=== PATIENT | male | born 1955 | race Caucasian/White ===

== ENCOUNTER 2016-10-30 12:01 | Emergency (ER) | payer OTHER ==
--- NOTE | 2016-10-30 12:16 | EDPHY ---
H & P Stated Complaint: Tingling to L arm shaky for months Time Seen by Provider: 10/30/16 12:10 HPI/ROS: CHIEF COMPLAINT: Chest pressure HISTORY OF PRESENT ILLNESS: The patient presents to the ED with an episode of chest pressure that began earlier today. The patient reportedly has had a history of paresthesias in his left upper extremity for the past several months. This is not changed acutely over the past day. The patient also has a tremor and does report moderate daily alcohol consumption. The patient denies pleuritic chest pain. The patient does report a history of chest pain in the past which was evaluated without obvious pathology noted. The patient currently is asymptomatic. He did have some mild low back pain which has been present over the past several weeks since sustaining a mechanical fall. He complains of some left posterior rib pain worsened with palpation. He did not seek care or evaluation at that time. REVIEW OF SYSTEMS: A comprehensive 10 point review of systems is otherwise negative aside from elements mentioned in the history of present illness. Source: Patient Exam Limitations: No limitations - Personal History Current Tetanus/Diphtheria Vaccine: Unsure Current Tetanus Diphtheria and Acellular Pertussis (TDAP): Unsure - Medical/Surgical History Hx Asthma: No Hx Chronic Respiratory Disease: No Hx Diabetes: No Hx Cardiac Disease: No Hx Renal Disease: No Hx Cirrhosis: No Hx Alcoholism: No Hx HIV/AIDS: No Hx Splenectomy or Spleen Trauma: No - Social History Smoking Status: Current every day smoker - Physical Exam Exam: General Appearance: Alert, no distress Eyes: Pupils equal and round no pallor or injection ENT, Mouth: Mucous membranes moist Respiratory: Tenderness to palpation in the left posterior ribs, minimal in nature Cardiovascular: Regular rate and rhythm Gastrointestinal: Abdomen is soft and nontender, no masses, bowel sounds normal Neurological: A&O, normal motor function, normal sensory exam, normal cranial nerves Skin: Warm and dry, no rashes Musculoskeletal: Neck is supple nontender Extremities: symmetrical, full range of motion Psychiatric: Patient is oriented X 3, there is no agitation, fine tremor Constitutional: Initial Vital Signs Temperature (C) 36.7 C 10/30/16 12:03 Heart Rate 75 10/30/16 12:03 Respiratory Rate 14 10/30/16 12:03 Blood Pressure 172/88 H 10/30/16 12:03 O2 Sat (%) 99 10/30/16 12:03 O2 Delivery Mode Room Air Allergies/Adverse Reactions: No Known Allergies Allergy (Unverified 10/30/16 12:06) Medical Decision Making - Diagnostics EKG Interpretation: EKG: Complete interpretation has been separately recorded in the [email or web address] archive. Summary impression: Sinus rhythm, rate 67 Imaging Results: Imaging Impressions Chest X-Ray 10/30/16 12:34 Impression: 1. Chest negative for acute cardiopulmonary abnormality. 2. Spinal degenerative changes are noted.. ED Course/Re-evaluation: The patient presents to the emergency department after an episode of back pain and mild chest pain. The patient has no risk factors for cardiac disease. His EKG and troponin is normal. The patient did have a mild tremor noted on exam which is likely consistent with mild alcohol withdrawal. The patient did receive 1 mg of IV Ativan. The patient was also evaluated for evidence of a rib fracture and chest trauma with a chest x-ray which demonstrated no evidence of a rib fracture, pneumothorax or hemothorax. The patient is re-evaluated at 1:45 p.m. and is feeling better. At this point time I do feel the patient can follow up with his primary care provider Dr. Randolph. Discussion: The patient presents the emergency department with multiple medical complaints. He has not had regular follow-up with his primary care provider. He does have complaints of back pain but no evidence of an obvious traumatic injury noted on exam. The patient did have some atypical chest and back pain earlier today but has a negative EKG and normal cardiac enzymes. I have instructed the patient that he should return to the ED immediately for any worsening chest pain, exertional chest pain, shortness of breath or other concerns. I have informed him that we cannot fully evaluate the presence of coronary artery disease and that further workup may be indicated. Differential Diagnosis: Differential diagnosis considered includes acute coronary syndrome, gastroesophageal reflux disease, myofascial strain, rib fracture, pneumothorax, hemothorax - Data Points Laboratory Results: Laboratory Results 10/30/16 12:30 10/30/16 12:30 10/30/16 10/30/16 12:30 12:30 WBC 7.54 10^3/uL 10^3/uL (3.80-9.50) RBC 4.50 10^6/uL 10^6/uL (4.40-6.38) Hgb 14.9 g/dL g/dL (13.7-17.5) Hct 44.2 % % (40.0-51.0) MCV 98.2 fL fL (81.5-99.8) MCH 33.1 pg pg (27.9-34.1) MCHC 33.7 g/dL g/dL (32.4-36.7) RDW 12.5 % % (11.5-15.2) Plt Count 166 10^3/uL 10^3/uL (150-400) MPV 11.3 fL fL (8.7-11.7) Neut % (Auto) 48.9 % % (39.3-74.2) Lymph % (Auto) 38.3 % % (15.0-45.0) [place] % (Auto) 9.2 % % (4.5-13.0) Eos % (Auto) 1.7 % % (0.6-7.6) Baso % (Auto) 1.1 % % (0.3-1.7) Nucleat RBC Rel Count 0.0 % % (0.0-0.2) Absolute Neuts (auto) 3.69 10^3/uL 10^3/uL (1.70-6.50) Absolute Lymphs (auto) 2.89 10^3/uL 10^3/uL (1.00-3.00) Absolute Monos (auto) 0.69 10^3/uL 10^3/uL (0.30-0.80) Absolute Eos (auto) 0.13 10^3/uL 10^3/uL (0.03-0.40) Absolute Basos (auto) 0.08 10^3/uL 10^3/uL (0.02-0.10) Absolute Nucleated RBC 0.00 10^3/uL 10^3/uL (0-0.01) Immature Gran % 0.8 % % (0.0-1.1) Immature Gran # 0.06 10^3/uL 10^3/uL (0.00-0.10) Sodium 139 mEq/L mEq/L (134-144) Potassium 4.9 mEq/L mEq/L (3.5-5.2) Chloride 103 mEq/L mEq/L (97-110) Carbon Dioxide 25 mEq/l mEq/l (22-31) Anion Gap 11 mEq/L mEq/L (8-16) BUN 15 mg/dL mg/dL (7-23) Creatinine 0.7 mg/dL mg/dL (0.7-1.3) Estimated GFR > 60 Glucose 125 mg/dL H mg/dL (70-100) Calcium 9.6 mg/dL mg/dL (8.5-10.4) Troponin I < 0.012 ng/mL ng/mL (0-0.034) Medications Given: Discontinued Medications Sodium Chloride (Ns) 1,000 mls @ 0 mls/hr IV ONCE ONE PRN Reason: Wide Open Stop: 10/30/16 12:35 Last Admin: 10/30/16 12:54 Dose: 1,000 mls Lorazepam (Ativan Injection) 1 mg IVP EDNOW ONE Stop: 10/30/16 12:38 Last Admin: 10/30/16 13:10 Dose: 1 mg Departure - Departure Disposition: Home, Routine, Self-Care Clinical Impression: Paresthesia, Back pain Condition: Good Instructions: Acute Low Back Pain (ED) Additional Instructions: 1. Based upon the testing done in the Emergency Department today we see no evidence of a heart attack. 2. We are unable to fully exclude coronary artery disease based upon the testing available in the Emergency Department. 3. For this reason, we would like you to be seen by cardiology for consideration of additional testing within the next 3 days. 4. Please contact the seed sales manager you have been referred to schedule this appointment as soon as possible. Their offices are typically open from 8:30am- 5pm M-F. 5. Please return to the Emergency Department immediately for any recurrent chest pain, difficulty breathing or other concerns. Referrals: Miles Randolph MD [Primary Care Provider] - As per Instructions Harman Garcia MD [Medical Doctor] - As per Instructions
[2016-10-30] MEDS ORDERED: NS 1,000 ML IV ONE (12:34)
[2016-10-30] MEDS ORDERED: LORazepam 2 MG/ML INJ IVP ONE (12:37)
--- NOTE | 2016-10-30 12:46 | CPEKG ---
Heart Rate: 67 RR Interval: 896 P-R Interval: 164 QRSD Interval: 92 QT Interval: 400 QTC Interval: 423 P [place]: 77 QRS [place]: 33 T Wave [place]: 45 EKG Severity - NORMAL ECG - EKG Impression: SINUS RHYTHM Electronically Signed By: Mark Perez 30-Oct-2016 12:54:28
[2016-10-30 12:57] LABS: % IMMATURE GRANULYOCYTES 0.8 % (0.0-1.1); ABSOLUTE IMMATURE GRANULOCYTES 0.06 10^3/uL (0.00-0.10); ADD DIFF? NO; ADD MORPH? NO; ADD SCAN? NO; ATYPICAL LYMPHOCYTE FLAG 20 (0-99); FRAGMENT RBC FLAG 0 (0-99); HEMATOCRIT 44.2 % (40.0-51.0); HEMOGLOBIN 14.9 g/dL (13.7-17.5); LEFT SHIFT FLG 0 (0-99); LIPEMIA HEMOLYSIS FLAG 80 (0-99); MEAN CELL HEMOGLOBIN 33.1 pg (27.9-34.1); MEAN CELL HEMOGLOBIN CONCENTR. 33.7 g/dL (32.4-36.7); MEAN CELL VOLUME 98.2 fL (81.5-99.8); MEAN PLATELET VOLUME 11.3 fL (8.7-11.7); PLATELET CLUMPS FLAG 10 (0-99); PLATELET COUNT 166 10^3/uL (150-400); RED CELL DISTRIBUTION WIDTH 12.5 % (11.5-15.2)
[2016-10-30 13:03] LABS: ANION GAP 11 mEq/L (8-16); CALCIUM 9.6 mg/dL (8.5-10.4); CARBON DIOXIDE 25 mEq/l (22-31); CHLORIDE 103 mEq/L (97-110); CREATININE 0.7 mg/dL (0.7-1.3); GLOMERULAR FILTRATION RATE > 60; GLUCOSE 125 mg/dL (70-100); POTASSIUM 4.9 mEq/L (3.5-5.2); SODIUM 139 mEq/L (134-144)
[2016-10-30 13:14] LABS: TROPONIN I < 0.012 ng/mL (0-0.034)
[2016-10-30 14:06] VITALS: BP 145/81; PULSE 74; RESP 18; TEMP 97.9; O2SAT 96
== END 2016-10-30 14:06 | disposition home or self-care (01) ==
DX: M54.5 Low back pain (principal); R20.2 Paresthesia of skin; F17.200 Nicotine dependence, unspecified, uncomplicated
CPT/HCPCS: 96374; J2060